=== PATIENT | female | born 1970 ===

== ENCOUNTER → 2017-09-28 | Outpatient (CLI) | payer BC ==
[2017-09-30 13:13] LABS: HPV Genotype 16 Not Detected (NOTDET); HPV Genotype 18 Not Detected (NOTDET); HPV High Risk Other Not Detected (NOTDET)
== END ==
LOC: LAB 15:25
PROVIDERS: Registered Nurse Community Health
DX: Z12.4 Encounter for screening for malignant neoplasm of cervix (principal)
CPT/HCPCS: 87624; G0123

== ENCOUNTER → 2018-09-09 | Outpatient (CLI) | payer OTHER | END | disposition home or self-care (01) | LOC: LAB 13:26 → LAB SHORT 13:26 | DX: N61.1 Abscess of the breast and nipple (principal) | CPT/HCPCS: 87070; 87075; 87077; 87147; 87186; 87205 ==

== ENCOUNTER → 2021-06-18 | Outpatient (CLI) | payer OTHER ==
[2021-06-20 11:10] LABS: HPV 16 Negative (Negative); HPV 18 Negative (Negative); HPV OTHER HR TYPES Negative (Negative)
== END ==
LOC: LAB SHORT 11:40 → LAB 11:40
PROVIDERS: Registered Nurse Community Health
DX: Z12.4 Encounter for screening for malignant neoplasm of cervix (principal)
CPT/HCPCS: 87624; G0123

== ENCOUNTER → 2021-10-14 | Outpatient (CLI) | payer OTHER | END | disposition home or self-care (01) | LOC: LAB SHORT 14:00 → LAB 14:00 | DX: Z09 Encounter for follow-up examination after completed treatment for conditions other than malignant neoplasm (principal); Z86.14 Personal history of Methicillin resistant Staphylococcus aureus infection | CPT/HCPCS: 87081 ==

== ENCOUNTER → 2021-10-22 | Outpatient (CLI) | payer OTHER | END | disposition home or self-care (01) | LOC: LAB SHORT 09:36 | DX: Z01.812 Encounter for preprocedural laboratory examination (principal); Z86.14 Personal history of Methicillin resistant Staphylococcus aureus infection | CPT/HCPCS: 87081 ==

== ENCOUNTER → 2021-12-02 | Outpatient (CLI) | payer OTHER | END | disposition home or self-care (01) | LOC: LAB SHORT 13:57 → LAB 13:57 | DX: Z01.812 Encounter for preprocedural laboratory examination (principal); Z86.14 Personal history of Methicillin resistant Staphylococcus aureus infection | CPT/HCPCS: 87081 ==

== ENCOUNTER 2021-12-11 09:26 | Day surgery (SDC) | payer OTHER ==
[~2021-12-11] VITALS: Ht 170.2 cm; Wt 89.6 kg
--- NOTE | 2021-12-11 10:31 | NUR ---
12/11/21 1031 [place] WHYTE PT TO PRE OP - IV TO L HAND. READY FOR OR. GELACIO WIPE TO ABDOMEN. PT WILL CALL LIGHT WITHIN REACH. ENGAGED IN PRE/POST OP TEACHING. ALL QUESTIONS ASKED AND ANSWERED.
--- NOTE | 2021-12-11 11:39 | NUR ---
12/11/21 1139 [place] EBLINDA AREA/VAGINA PREPPED BY [email or web address]. ABDOMEN PREPPED BY [email or web address] 0.15ML OF EPI 1MG/ML ADDED TO 30ML OF BUPIVICAINE 0.5% TO CREATE A LOCAL SOLUTION OF BUPIVICAINE 0.5% WITH EPI 1:200,000.
--- NOTE | 2021-12-11 13:43 | NUR ---
12/11/21 1343 KIANA BERMAN PT HAVING NAUSEA - REGLEN GIVEN
== END 2021-12-11 14:39 | disposition home or self-care (01) ==
LOC: ORSCSDS 09:26
PROVIDERS: Obstetrics & Gynecology
PROC: 0DNU4ZZ Release Omentum, Percutaneous Endoscopic Approach (ICD-10-PCS; principal; 2021-12-11 10:45)
PROC: 0UT24ZZ Resection of Bilateral Ovaries, Percutaneous Endoscopic Approach (ICD-10-PCS; principal; 2021-12-11 10:45)
PROC: 0UT74ZZ Resection of Bilateral Fallopian Tubes, Percutaneous Endoscopic Approach (ICD-10-PCS; principal; 2021-12-11 10:45)
PROC: 0UDB8ZX Extraction of Endometrium, Via Natural or Artificial Opening Endoscopic, Diagnostic (ICD-10-PCS; principal; 2021-12-11 10:45)
DX: N84.0 Polyp of corpus uteri (principal); Z80.41 Family history of malignant neoplasm of ovary; K66.0 Peritoneal adhesions (postprocedural) (postinfection)
CPT/HCPCS: 88305; J0171; J0690; J1100; J1885; J2250; J2405; J2550; J2704; J2765; J3010; J7120

== ENCOUNTER 2023-04-13 07:05 | Day surgery (SDC) | payer OTHER ==
[2023-04-13] VITALS (12 sets, daily range): BP systolic 117–162; BP diastolic 71–109
[~2023-04-13] VITALS: Ht 170 cm; Wt 86.4 kg
--- NOTE | 2023-04-13 08:01 | NUR ---
04/13/23 0801 Janusz Sanchez HISTORY, CHART, MEDICATIONS AND ALLERGIES REVIEWED BEFORE START OF PROCEDURE. PATIENT CONFIRMS NPO STATUS AND AGREES WITH SCHEDULED PROCEDURE. 3-LEAD EKG REVIEWED WITH PHYSICIAN PRIOR TO START OF PROCEDURE. MONITOR INTACT WITH CONTINUOUS PULSE OXIMETRY,CAPNOGRAPHY, 3-LEAD EKG, INTERMITTENT BP. SUPPLEMENTAL O2 TO BE TITRATED THROUGHOUT PROCEDURE TO MAINTAIN O2 SATURATION ABOVE 90%. PATIENT DETERMINED TO BE ASA APPROPRIATE FOR PROPOFOL SEDATION PRIOR TO START OF PROCEDURE BY
--- NOTE | 2023-04-13 08:05 | NUR ---
Ambulatory in Day Surgery. Pre-Op teaching done. Pt verbalizes understanding. Patient confirms NPO status and agrees with scheduled surgery. History, Chart, Medications and Allergies reviewed before start of procedure. Patient states colon prep results rowan with small amounts of sediment. Patient States Post-Procedure ride home has been arranged. Lungs clear T/O to Auscultation.
--- NOTE | 2023-04-13 08:57 | NUR ---
Patient up to Ambulate independently. Gait steady. Tolerating PO fluids well. Discharge instructions reviewed with patient. Patient verbalizes understanding. Copy given to patient to take home. Patient States Post-Procedure ride home has been arranged. Discharged via wheelchair to private car for ride home.
== END 2023-04-13 22:50 | disposition home or self-care (01) ==
LOC: ORSCMMR 07:05 → ORD 09:00 → ORSCMMR 22:50
PROVIDERS: Internal Medicine Gastroenterology
PROC: 0DJD8ZZ Inspection of Lower Intestinal Tract, Via Natural or Artificial Opening Endoscopic (ICD-10-PCS; principal; 2023-04-13 09:00)
DX: Z12.11 Encounter for screening for malignant neoplasm of colon (principal); I10 Essential (primary) hypertension
CPT/HCPCS: J2704; J7120

== ENCOUNTER → 2023-06-23 | Outpatient (CLI) | payer OTHER ==
[2023-06-23 14:24] LABS: BASOPHILS ABSOLUTE AUTO 0.05 K/mm3 (0.00-0.23); BASOPHILS PERCENT AUTO 1 % (0-2); EOSINOPHILS ABSOLUTE AUTO 0.06 K/mm3 (0.00-0.68); EOSINOPHILS PERCENT AUTO 1 % (0-6); Hematocrit 43.1 % (33.0-51.0); Hemoglobin 14.5 g/dL (11.5-16.0); IMMATURE GRAN ABSOLUTE AUTO 0.01 K/mm3 (0.00-0.10); IMMATURE GRAN PERCENT AUTO 0 % (0-1); LYMPHOCYTES ABSOLUTE AUTO 2.62 K/mm3 (0.84-5.20); LYMPHOCYTES PERCENT AUTO 38 % (21-46); MONOCYTES ABSOLUTE AUTO 0.49 K/mm3 (0.16-1.47); MONOCYTES PERCENT AUTO 7 % (4-13); Mean Corpuscular HGB 29.1 pg (26.0-34.0); Mean Corpuscular HGB Conc 33.6 g/dL (31.5-36.5); Mean Corpuscular Volume 87 fL (80-100); Mean Platelet Volume 10.6 fL (9.1-12.4); NEUTROPHILS ABSOLUTE AUTO 3.74 K/mm3 (1.96-9.15); NEUTROPHILS PERCENT AUTO 54 % (41-73); Platelet Count 219 K/mm3 (150-400); RDW Coefficient Variation 12.5 % (11.7-14.2); RDW Standard Deviation 39.5 fL (35.1-46.3); Red Blood Cell Count 4.98 M/mm3 (3.80-5.20); White Blood Cell Count 6.97 K/mm3 (4.00-11.30)
[2023-06-23 17:12] LABS: Thyroid Stimulating Hormone 1.94 uIU/mL (0.360-4.800)
[2023-06-23 17:13] LABS: Albumin/Globulin Ratio 1.1 (0.8-1.8); Bilirubin, Total 0.3 mg/dL (0.1-1.0); Bun/Creatinine Ratio 32.3 (12.0-20.0); Calcium, Blood 9.2 mg/dL (8.5-10.1); Creatinine, Blood 0.65 mg/dL (0.40-1.00); Globulin, Blood 3.7 g/dL (2.2-4.0); Total Protein, Blood 7.7 g/dL (6.4-8.2)
== END | disposition home or self-care (01) ==
LOC: LAB 13:32 → LAB SHORT 13:32
DX: E04.9 Nontoxic goiter, unspecified (principal); E66.9 Obesity, unspecified
CPT/HCPCS: 80053; 84443; 85025